=== PATIENT | male | born 1960 | race Caucasian/White ===

== ENCOUNTER 2018-10-31 03:59 | Emergency (ER) | payer BC ==
[2018-10-31] MEDS ORDERED: Ondansetron PF 4 MG/2 ML Vial ONE (04:12)
[2018-10-31] MEDS ORDERED: Sodium Chloride 0.9% 1,000 ML ONE (04:12)
[2018-10-31 04:17] LABS: #Eosinphils 0.2 thou/uL (0.0-0.7); #Lymphocytes 1.1 thou/uL (1.20-3.40); #Monocytes 0.5 thou/uL (0.11-0.59); #Neutrophils 6.3 thou/uL (1.40-6.50); %Basophils 0.5 % (0.0-1.0); %Eosinophils 1.9 % (0.0-10.0); %Lymphocytes 13.4 % (21.0-51.0); %Monocytes 5.6 % (0.0-10.0); %Neutrophils 78.6 % (42.0-75.0); Hemoglobin 15.5 g/dL (14.0-18.0); Mean Corpuscular HGB CONC 31.8 g/dL (32.0-36.0); Mean Corpuscular Volume 91.3 fL (78.0-98.0); Mean Platelet Volume 8.6 fL (7.4-10.4); Platelet Count 213 thou/uL (130-400); RBC Distribution Width 12.7 % (11.5-14.5); Red Blood Cell (RBC) Count 5.35 mill/uL (4.70-6.10); White Blood Cell (WBC) Count 8.1 thou/uL (4.8-10.8)
[2018-10-31 04:33] LABS: ALT (SGPT) 20 U/L (8-55); AST (SGOT) 14 U/L (5-34); Albumin 4.7 g/dL (3.5-5.0); Alkaline Phosphatase 99 U/L (40-150); Anion Gap 19 mmol/L (10-20); BUN (Urea Nitrogen) 19 mg/dL (8.4-25.7); Bilirubin, Total 0.7 mg/dL (0.2-1.2); Calc. Creatinine Clearance 0 mL/min (70-130); Calcium 10.1 mg/dL (7.8-10.44); Carbon Dioxide 25 mmol/L (22-29); Chloride 101 mmol/L (98-107); Estimated GFR-MDRD 45; Globulin 3.2 g/dL (2.4-3.5); Glucose 325 mg/dL (70-105); Potassium 4.6 mmol/L (3.5-5.1); Protein, Total 7.9 g/dL (6.0-8.3); Sodium 140 mmol/L (136-145)
[2018-11-01 14:04] LABS: Follow-up Chemistry Comp? YES; Follow-up Result - Chemistry REPORT FAXED
== END 2018-10-31 05:30 | disposition home or self-care (01) ==
LOC: MADERS 03:59
DX: E86.0 Dehydration (principal); K52.9 Noninfective gastroenteritis and colitis, unspecified; E11.9 Type 2 diabetes mellitus without complications; I10 Essential (primary) hypertension; Z79.4 Long term (current) use of insulin
CPT/HCPCS: 80053; 82010; 84484; 85025; 93005; 96361; 96374; J2405; J7050

== ENCOUNTER 2019-10-14 09:12 | Emergency (ER) | payer BC ==
[2019-10-14] MEDS ORDERED: Sodium Chloride 0.9% 100 ML ONE ×2 (09:32→09:35)
[2019-10-14] MEDS ORDERED: Insulin Regular 300 UNITS/3 ML VIAL ONE (09:32)
[2019-10-14] MEDS ORDERED: Sodium Chloride 0.9% 2,000 ML ONE (09:34)
[2019-10-14] MEDS ORDERED: Cefepime 2 GM VIAL ONE (09:34)
--- NOTE | 2019-10-14 09:34 | RAD ---
RADIOGRAPH CHEST 1 VIEW: DATE: 10/14/2019 TIME: 9:35 AM HISTORY: 59-year-old male with dyspnea COMPARISON: none FINDINGS: Diffusely prominent interstitial markings, especially at bases, questionable for minimal interstitial edema. No cardiomegaly. Sternotomy wires. No consolidation or pneumothorax. IMPRESSION: Questionable mild noncardiogenic pulmonary interstitial edema.
[2019-10-14] MEDS ORDERED: Sodium Chloride 0.9% 250 ML 250 ML ONE (09:35)
[2019-10-14] MEDS ORDERED: Ondansetron PF 4 MG/2 ML Vial ONE (09:47)
[2019-10-14 10:17] LABS: INR-International Normal Ratio 1.2; PTT 25.2 SEC (22.9-36.1)
[2019-10-14 10:28] LABS: ALT (SGPT) 20 U/L (8-55); AST (SGOT) 31 U/L (5-34); Albumin 3.5 g/dL (3.5-5.0); Alkaline Phosphatase 110 U/L (40-110); Anion Gap 31 mmol/L (10-20); BUN (Urea Nitrogen) 58 mg/dL (8.4-25.7); Bilirubin, Total 0.4 mg/dL (0.2-1.2); CK (CPK) 258 U/L (30-200); Calc. Creatinine Clearance 0 mL/min (70-130); Calcium 8.2 mg/dL (7.8-10.44); Chloride 100 mmol/L (98-107); Estimated GFR-MDRD 19; Potassium 5.3 mmol/L (3.5-5.1); Protein, Total 6.5 g/dL (6.0-8.3); Sodium 134 mmol/L (136-145)
[2019-10-14 10:31] LABS: #Lymphocytes 0.4 thou/uL (1.20-3.40); #Monocytes 0.4 thou/uL (0.11-0.59); #Neutrophils 16.4 thou/uL (1.40-6.50); %Basophils 0.1 % (0.0-1.0); %Eosinophils 0.1 % (0.0-10.0); %Lymphocytes 2.2 % (21.0-51.0); %Monocytes 2.4 % (0.0-10.0); %Neutrophils 95.2 % (42.0-75.0); Hemoglobin 11.2 g/dL (14.0-18.0); Mean Corpuscular HGB CONC 28.8 g/dL (32.0-36.0); Mean Corpuscular Volume 97.2 fL (78.0-98.0); Mean Platelet Volume 9.8 fL (7.4-10.4); Platelet Count 195 thou/uL (130-400); RBC Distribution Width 13.3 % (11.5-14.5); Red Blood Cell (RBC) Count 4.01 mill/uL (4.70-6.10); White Blood Cell (WBC) Count 17.2 thou/uL (4.8-10.8)
[2019-10-14] MEDS ORDERED: Sodium Chloride 0.9% 1,000 ML ONE (10:36)
[2019-10-14] MEDS ORDERED: Pantoprazole 40 MG VIAL ONE (10:36)
[2019-10-14 10:40] LABS: Carbon Dioxide 8 mmol/L (22-29); Glucose 769 mg/dL (70-105); Lipase Less than 4 U/L (8-78)
[2019-10-14 10:44] LABS: Base Excess (BEa) POC ABG -20.8 mmol/L (0 (+/- 2.5)); Calcium, Ionized 1.14 mmol/L (1.15-1.33); Hemoglobin POC ABG 14.2 g/dL (12.0-17.0); O2 Saturation (calc) POC ABG 93.2 % (94-98); Potassium POC ABG 5.5 mmol/L (3.5-4.5)
== END 2019-10-14 11:31 | disposition short-term general hospital (02) ==
LOC: MADERS 09:12
DX: E11.10 Type 2 diabetes mellitus with ketoacidosis without coma (principal); I21.4 Non-ST elevation (NSTEMI) myocardial infarction; K92.2 Gastrointestinal hemorrhage, unspecified; I10 Essential (primary) hypertension; I25.2 Old myocardial infarction; E11.621 Type 2 diabetes mellitus with foot ulcer; L97.429 Non-pressure chronic ulcer of left heel and midfoot with unspecified severity; L97.529 Non-pressure chronic ulcer of other part of left foot with unspecified severity; Z79.4 Long term (current) use of insulin; Z79.82 Long term (current) use of aspirin; Z79.899 Other long term (current) drug therapy
CPT/HCPCS: 36415; 71045; 80053; 82271; 82330; 82435; 82550; 82553; 82803; 83605; 83690; 83880; 84132; 84295; 84484; 85014; 85025; 85610; 85730; 86850; 86900; 86901; 87040; 93005; 94760; 96365; 96367; 96375; 99292; C9113; J0692; J1815; J2405; J3370; J3490; J7050